=== PATIENT | male | born 1990 | race African-American/Black ===

== ENCOUNTER 2017-06-10 03:25 | Emergency (ER) | payer MEDICAID ==
[~2017-06-10] VITALS: Ht 175.3 cm; Wt 77.1 kg
[2017-06-10 03:25] VITALS: BP 113/62
[~2017-06-10 03:25] MED LIST: NKM
[2017-06-10 04:04] LABS: APPEARANCE,URINE CLEAR; KETONES,URINE NEGATIVE (NEGATIVE); LEUKOCYTE ESTERASE ,URINE 1+ (NEGATIVE); NITRITE,URINE NEGATIVE (NEGATIVE); PH,URINE 6 (4.5-8.0); PROTEIN,URINE 2+ (NEGATIVE); UROBILINOGEN,URINE NORMAL MG/DL (0.0-1.0)
[2017-06-10 04:22] LABS: BACTERIA,URINE FEW /HPF; RBC,URINE 0-2 /HPF (0 - 0); SQUAMOUS EPITHELIAL CELL,UR OCCASIONAL /LPF (NONE/OCC)
[2017-06-10] MEDS ORDERED: Lidocaine 1% MPF 10mg/ml 5ml IM ONE (04:45)
--- NOTE | 2017-06-10 04:54 | Emergency Room Report ---
History of Present Illness General Chief Complaint: Abdominal Pain Source: Patient Present Illness HPI According to EMS this patient had abdominal pain. According to the patient he has a scalp infection and is concerned about the fact it's not getting better. He denies abdominal pain. The patient is equivocal whether it is been using amphetamine recently. Denies SI or HI. Patient with history of HIV. No fevers, chest pain, cough, NVD, extremity pain. He refuses to answer or cooperate initially. Will only do so if given juice. Allergies: Coded Allergies: No Known Allergies (Unverified , 06/10/17) Patient History Past Medical History: see triage record Social History: Reports: drug use, Denies: smoking Social History Narrative on streets Reviewed Nursing Documentation: PMH: Agreed, PSxH: Agreed Review of Systems All Other Systems: negative except mentioned in HPI Physical Exam Vital Signs Date Time Temp Pulse Resp B/P Pulse Ox O2 Delivery O2 Flow Rate FiO2 06/10/17 03:16 99.1 92 16 113/62 100 Room Air Sp02 EP Interpretation: reviewed, normal General Appearance: no apparent distress, non-toxic, thin, Chronically Ill Head: normocephalic Eyes: bilateral eye PERRL, bilateral eye Scleral Injection ENT: moist mucus membranes Neck: supple Respiratory: lungs clear, normal breath sounds Cardiovascular #1: regular rate, rhythm Cardiovascular #2: 2+ radial (R) Gastrointestinal: normal inspection, normal bowel sounds, non tender, no mass, non-distended Musculoskeletal: back normal, gait/station normal, normal range of motion Neurologic: alert, motor strength/tone normal, DTRs symmetric, sensory intact, oriented - will not answer Psychiatric: no suicidal/homicidal ideation, other - pressured and not willing to answer Skin: normal inspection, warm/dry, other - inflammatory dermatitis - excoriations Medical Decision Making Diagnostic Impression: Primary Impression: Amphetamine dermatitis Additional Impressions: Dysuria HIV (human immunodeficiency virus infection) Alleged lice ER Course Patient brought by EMS - they say for abd pain, he says for scalp rash. DDx; scabies, lice, drug eruption, seborrhea. Patient is refusing evaluation and treatment. He finally agreed when I offered him treatment of his scalp condition. Will eval with labs, UA. The patient's labs are remarkable for positive amphetamines and pyuria. Patient is being treated with Rocephin and doxycycline. He also received Benadryl and permethrin. Patient refused rocephin. Azithromycin given instead. Difficult to tell if underlying psychopathy or related to amphetamine. Still denies SI or HI. Patient improved and stable for outpatient observation and treatment. Laboratory Tests Test 06/10/17 03:29 06/10/17 03:45 Urine Color Pale yellow Urine Appearance Clear Urine pH 6 (4.5-8.0) Urine Specific [place] 1.020 (1.005-1.035) Urine Protein 2+ (NEGATIVE) H Urine Glucose (UA) Negative (NEGATIVE) Urine Ketones Negative (NEGATIVE) Urine Occult Blood Negative (NEGATIVE) Urine Nitrite Negative (NEGATIVE) Urine Bilirubin Negative (NEGATIVE) Urine Urobilinogen Normal MG/DL (0.0-1.0) Urine Leukocyte Esterase 1+ (NEGATIVE) H Urine RBC 0-2 /HPF (0 - 0) H Urine WBC 5-10 /HPF (0 - 0) H Urine Squamous Epithelial Cells Occasional /LPF Urine Bacteria Few /HPF (NONE) Urine Opiates Screen Negative (NEGATIVE) Urine Barbiturates Screen Negative (NEGATIVE) Phencyclidine (PCP) Screen Negative (NEGATIVE) Urine Amphetamines Screen Positive (NEGATIVE) H Urine Benzodiazepines Screen Negative (NEGATIVE) Urine Cocaine Screen Negative (NEGATIVE) Urine Marijuana (THC) Screen Negative (NEGATIVE) Last Vital Signs Date Time Temp Pulse Resp B/P Pulse Ox O2 Delivery O2 Flow Rate FiO2 06/10/17 06:35 99.1 91 18 125/68 100 Room Air Status: improved Disposition: HOME, SELF-CARE Condition: Improved Scripts Diphenhydramine Hcl* (BENADRYL*) 25 Mg Capsule 25 MG ORAL Q6H Y for Itching, #14 CAP Prov: Bassem Garcia M.D. 06/10/17 Permethrin* (ELIMITE*) 60 Gm Cream..g. 1 APPLIC TOPIC ONCE, #60 GM 0 Refills Apply cream from head to toe; leave on for 8-14 hours before washing off with water; may reapply in 1 week if live mites appear. Prov: Bassem Garcia M.D. 06/10/17 Doxycycline Hyclate* (VIBRAMYCIN*) 100 Mg Capsule 100 MG ORAL EVERY 12 HOURS, #14 CAP 0 Refills Prov: Bassem Garcia M.D. 06/10/17 Referrals: NOT CHOSEN [facility]/,REFERRING (PCP) Bassem Garcia M.D. Jun 10, 2017 04:54
[2017-06-10] MEDS ORDERED: PERMETHRIN60 GM TOPIC (05:00)
[2017-06-10] MEDS ORDERED: VIBRAMYCIN100 MG ORAL (05:00)
[2017-06-10] MEDS ORDERED: Azithromycin 250mg tab ORAL ONE (05:00)
[2017-06-10] MEDS ORDERED: BENADRYL25 MG ORAL (05:00)
[2017-06-10 05:25] VITALS: BP 125/65
[2017-06-10 06:35] VITALS: BP 125/68
== END 2017-06-10 06:35 | disposition home or self-care (01) ==
LOC: EDBD 03:25 → EMR 04:14 → EDBD 04:14 → EMR 06:35
DX: L27.0 Generalized skin eruption due to drugs and medicaments taken internally (principal); T43.625A Adverse effect of amphetamines, initial encounter; Y92.9 Unspecified place or not applicable; R30.0 Dysuria; B20 Human immunodeficiency virus [HIV] disease
CPT/HCPCS: 80300; 81003; 87491; 87590; 96372; 99284; J0696; Q0144

== ENCOUNTER 2017-08-13 02:12 | Emergency (ER) | payer MEDICAID ==
[~2017-08-13] VITALS: Ht 175.3 cm; Wt 77.1 kg
[~2017-08-13 02:12] MED LIST changes: +BENADRYL25 MG ORAL; +PERMETHRIN60 GM TOPIC; +VIBRAMYCIN100 MG ORAL
[2017-08-13 02:43] VITALS: BP 138/80
--- NOTE | 2017-08-13 03:18 | Emergency Room Report ---
History of Present Illness General Chief Complaint: Nausea, Vomiting, and Diarrhea Source: Patient Present Illness HPI Is a 27-year-old male with history of HIV. He presents with chief complaint of weakness. Is what he told the nursing staff. He tell me that he want a place to sleep. He came in complaining of weakness and having diarrhea. He said he had defecated on his pants so he was naked when he came in. Denies any fever chills denies any nausea vomiting. Actually asking for food. No other complaint. No pain. Allergies: Coded Allergies: No Known Allergies (Unverified , 06/10/17) Patient History Past Medical History: see triage record, HIV Past Surgical History: other Pertinent Family History: none Social History: Reports: smoking Immunizations: other Reviewed Nursing Documentation: PMH: Agreed, PSxH: Agreed Nursing Documentation-PMH Past Medical History: No History, Except For Review of Systems Eye: Denies: eye pain, blurred vision ENT: Denies: ear pain, nose congestion, throat swelling Respiratory: Denies: cough, shortness of breath Cardiovascular: Denies: chest pain, palpitations Gastrointestinal: Denies: abdominal pain, diarrhea, nausea, vomiting Musculoskeletal: Denies: back pain, joint pain Skin: Denies: rash Neurological: Denies: headache, numbness Endocrine: Denies: increased thirst, increased urine Hematologic/Lymphatic: Denies: easy bruising All Other Systems: negative except mentioned in HPI Physical Exam Vital Signs Date Time Temp Pulse Resp B/P (MAP) Pulse Ox O2 Delivery O2 Flow Rate FiO2 08/13/17 02:29 99.1 105 16 121/82 98 Room Air vitals unremarkable Sp02 EP Interpretation: reviewed, normal General Appearance: well appearing, no apparent distress, alert Head: normocephalic, atraumatic Eyes: bilateral eye PERRL, bilateral eye EOMI ENT: hearing grossly normal, normal pharynx Neck: full range of motion, supple, no meningismus Respiratory: chest non-tender, lungs clear, normal breath sounds Cardiovascular #1: regular rate, rhythm, no murmur Gastrointestinal: normal bowel sounds, non tender, no mass, no organomegaly, no bruit, non-distended Musculoskeletal: back normal, gait/station normal, normal range of motion Psychiatric: mood/affect normal Skin: warm/dry Medical Decision Making Diagnostic Impression: Primary Impression: Nausea, vomiting, and diarrhea ER Course Patient presents with complaint of vomiting and diarrhea and weakness. He sleeping comfortably here. Eating without a problem. I will Let him sleep into the morning and discharge. Patient does not want social service. No suicidal thought homicidal thought. Denies any drug use. No evidence of any acute abdomen. Last Vital Signs Date Time Temp Pulse Resp B/P (MAP) Pulse Ox O2 Delivery O2 Flow Rate FiO2 08/13/17 02:43 99.1 90 16 138/80 100 Room Air Status: improved Disposition: HOME, SELF-CARE Condition: Stable Referrals: NOT CHOSEN [facility]/MD,REFERRING (PCP) Patient Instructions: DIET, Vomiting or Diarrhea [4yr-Adult] Additional Instructions: Abstain from drugs and alcohol. Followup with your Dr. in 7 days. Return if worse. VICTORIA MCDANIEL M.D. Aug 13, 2017 03:18
[2017-08-13 04:22] VITALS: BP 132/80
[2017-08-13 04:35] VITALS: BP 134/78
[2017-08-14] MEDS ORDERED: CIPROFLOXACIN500 M2 ORAL (05:26)
[2017-08-14] MEDS ORDERED: METRONIDAZOLE500 MG ORAL (05:26)
== END 2017-08-13 04:35 | disposition home or self-care (01) ==
LOC: EMR 02:20
DX: R11.2 Nausea with vomiting, unspecified (principal); R19.7 Diarrhea, unspecified; F17.200 Nicotine dependence, unspecified, uncomplicated
CPT/HCPCS: 99284

== ENCOUNTER 2017-08-14 02:27 | Emergency (ER) | payer MEDICAID ==
[~2017-08-14] VITALS: Ht 175.3 cm; Wt 77.1 kg
[2017-08-14] MEDS ORDERED: metroNIDAZOLE 500mg tab ORAL ONE (03:15)
[2017-08-14] MEDS ORDERED: Ciprofloxacin 500mg tab ORAL ONE (03:15)
--- NOTE | 2017-08-14 05:19 | Emergency Room Report ---
History of Present Illness General Chief Complaint: Diarrhea Source: Patient, Family Member Present Illness HPI This is a 27-year-old male who I saw last night for chief complaint of diarrhea. He came back today for the same thing. He slept several hours last night without any problem. He said when he left ear he had diarrhea again. No fever chills but no pain. No nausea no vomiting. Denies any other complaint. He has a history of methamphetamine abuse but he 9 any current use. Denies any alcohol. Allergies: Coded Allergies: No Known Allergies (Unverified , 06/10/17) Patient History Past Medical History: see triage record, old chart reviewed, HIV Past Surgical History: other Pertinent Family History: none Social History: Reports: smoking Immunizations: other Reviewed Nursing Documentation: PMH: Agreed, PSxH: Agreed Review of Systems Eye: Denies: eye pain, blurred vision ENT: Denies: ear pain, nose congestion, throat swelling Respiratory: Denies: cough, shortness of breath Cardiovascular: Denies: chest pain, palpitations Gastrointestinal: Denies: abdominal pain, diarrhea, nausea, vomiting Musculoskeletal: Denies: back pain, joint pain Skin: Denies: rash Neurological: Denies: headache, numbness Endocrine: Denies: increased thirst, increased urine Hematologic/Lymphatic: Denies: easy bruising All Other Systems: negative except mentioned in HPI Physical Exam Vital Signs Date Time Temp Pulse Resp B/P (MAP) Pulse Ox O2 Delivery O2 Flow Rate FiO2 08/14/17 02:49 97.5 108 18 130/67 98 Room Air vitals normal Sp02 EP Interpretation: reviewed, normal General Appearance: well appearing, no apparent distress, alert Head: normocephalic, atraumatic Eyes: bilateral eye PERRL, bilateral eye EOMI ENT: hearing grossly normal, normal pharynx Neck: full range of motion, supple, no meningismus Respiratory: chest non-tender, lungs clear, normal breath sounds Cardiovascular #1: regular rate, rhythm, no murmur Gastrointestinal: normal bowel sounds, non tender, no mass, no organomegaly, no bruit, non-distended Musculoskeletal: back normal, gait/station normal, normal range of motion Neurologic: alert, oriented x3 Psychiatric: mood/affect normal Skin: warm/dry Medical Decision Making Diagnostic Impression: Primary Impression: Diarrhea Qualified Codes: A09 - Infectious gastroenteritis and colitis, unspecified ER Course Patient presents with diarrhea. Because of his HIV history and homelessness, would treat with antibiotics. He does not want social service consult. We'll discharge him. He has no diarrhea since he been here. I suspect that he just want a place to sleep. Last Vital Signs Date Time Temp Pulse Resp B/P (MAP) Pulse Ox O2 Delivery O2 Flow Rate FiO2 08/14/17 02:49 97.5 108 18 130/67 98 Room Air Status: improved Disposition: HOME, SELF-CARE Condition: Stable Scripts Metronidazole* (FLAGYL*) 500 Mg Tablet 500 MG ORAL BID, #14 TAB Prov: VICTORIA MCDANIEL M.D. 08/14/17 Ciprofloxacin Hcl* (CIPROFLOXACIN HCL*) 500 Mg Tablet 500 MG ORAL Q12H, #14 TAB 0 Refills Prov: VICTORIA MCDANIEL M.D. 08/14/17 Referrals: NOT CHOSEN [facility]/,REFERRING (PCP) Patient Instructions: Diarrhea, Adult Additional Instructions: Followup with your Dr. in 7 days. Return if worse. VICTORIA MCDANIEL M.D. Aug 14, 2017 05:19
[2017-08-14] MEDS ORDERED: CIPROFLOXACIN500 M2 ORAL (05:26)
[2017-08-14] MEDS ORDERED: METRONIDAZOLE500 MG ORAL (05:26)
[2017-08-14 06:11] VITALS: BP 119/70
== END 2017-08-14 06:12 | disposition home or self-care (01) ==
LOC: EMR 03:00
DX: A09 Infectious gastroenteritis and colitis, unspecified (principal); F17.200 Nicotine dependence, unspecified, uncomplicated; Z59.0 Homelessness
CPT/HCPCS: 99284